=== PATIENT | male | born 1960 | race Caucasian/White ===

== ENCOUNTER 2018-03-29 12:14 | Outpatient (CLI) | payer OTHER | END 2018-03-29 12:15 | disposition home or self-care (01) | LOC: BICMRI 12:14 | PROVIDERS: ATTEND Family Medicine | DX: M54.41 Lumbago with sciatica, right side (principal); M99.83 Other biomechanical lesions of lumbar region; M47.896 Other spondylosis, lumbar region | CPT/HCPCS: 72148 ==

== ENCOUNTER 2018-04-11 12:49 | Outpatient (CLI) | payer OTHER | END 2018-04-11 12:50 | disposition home or self-care (01) | LOC: BICMRI 12:49 | PROVIDERS: ATTEND Family Medicine | DX: M25.511 Pain in right shoulder (principal); M19.011 Primary osteoarthritis, right shoulder ==

== ENCOUNTER 2019-05-12 05:50 | Day surgery (SDC) | payer OTHER ==
[2019-05-11 16:32] VITALS: BMI 22.8
[2019-05-12] MEDS ORDERED: Fentanyl 100 MCG/2 ML VIAL ONE (06:48)
[2019-05-12] MEDS ORDERED: HYDROmorphone 0.5 MG/0.5 ML SYRINGE ONE (06:49)
[2019-05-12] MEDS ORDERED: Thrombin 5000 UNITS/5 ML VIAL ONE (06:54)
[2019-05-12] MEDS ORDERED: Bupivacaine HCl 0.5%/Epinephrine 1:200,000/PF 30 ml Vial ONE (06:54)
[2019-05-12] MEDS ORDERED: Tamsulosin HCl 0.4 MG CAP ONE (08:27)
[2019-05-12] MEDS ORDERED: HYDROcodone/Acetaminophen 5/325 mg Tablet ONE ×2 (10:16→12:33)
--- NOTE | 2019-05-12 11:45 | OP ---
DATE OF PROCEDURE: 05/12/2019 HOSPITAL STAFF PHARMACIST: Benigno Milian PA-C INDICATION: Pain. DIAGNOSIS: Right L5 radiculopathy. PROCEDURES PERFORMED: Right L5 medial facetectomy and foraminotomy. ANESTHESIA: General. DESCRIPTION OF PROCEDURE: The patient was brought into the operating room and placed under general anesthesia. He was flipped from a supine to prone position on operating room table. A linear incision was planned over L5. After prepping and draping and after an appropriate preoperative pause, the incision was created. The soft tissues were swept away from midline. Self-retaining retractors were placed in the wound for optimal exposure. After confirming the appropriate level with C-arm fluoroscopy, high-speed cutting drill bit as well as 2, 3, and 4 mm Kerrisons were used to perform facetectomy along the medial aspect of L5 on the right. A portion the superior articulating facet was removed in order to decompress the projecting component into the foramen. After ensuring the foramina was patent in the nerve root free of compression, the wound was irrigated. Hemostasis was maintained throughout. The wound was then closed in anatomic layers and a pressure dressing was applied. There were no known procedural complications. Job ID: [id number]
--- NOTE | 2019-05-12 16:54 | EKG ---
Test Reason : PREOP Blood Pressure : / mmHG Vent. Rate : 083 BPM Atrial Rate : 083 BPM P-R Int : 156 ms QRS Dur : 090 ms QT Int : 380 ms P-R-T Axes : 061 060 056 degrees QTc Int : 446 ms Normal sinus rhythm repolarization variant No previous ECGs available Confirmed by DR. Theresa ELIZABETH ([id number]) on 05/12/2019 4:53:50 PM Referred By: Oneyda CALIX Confirmed By:DR. Theresa ELIZABETH
== END 2019-05-12 12:45 ==
LOC: SDC 05:50
PROVIDERS: ATTEND Neurological Surgery
PROC: 01NB0ZZ Release Lumbar Nerve, Open Approach (ICD-10-PCS; principal; 2019-05-12)
DX: M54.16 Radiculopathy, lumbar region (principal); M46.06 Spinal enthesopathy, lumbar region; M48.061 Spinal stenosis, lumbar region without neurogenic claudication; Z79.899 Other long term (current) drug therapy
CPT/HCPCS: 76000; 93005; 93010; J0670; J0690; J1170; J3010

== ENCOUNTER 2019-07-10 10:23 | Outpatient (CLI) | payer OTHER ==
--- NOTE | 2019-07-10 11:14 | MRI ---
MRI CERVICAL SPINE WITHOUT CONTRAST: HISTORY: Cervical radiculopathy. COMPARISON: None. FINDINGS: Appropriate T1 marrow signal intensity of the cervical vertebrae. Cervical spine vertebral body heigh t is maintained. No fracture. No significant STIR hyperintensity to suggest vertebral body edema or ligamentous injury. Visualized brain parenchyma, cervicomedullary junction, cervical cord and the upper thoracic cord are normal size and signal intensity. C2-C3: No significant central canal stenosis or significant neural foraminal narrowing. C3-C4: Central disc protrusion makes contact with the thecal sac. Mild central canal stenosis. Mild t o moderate right and left foraminal narrowing due to uncovertebral hypertrophy. C4-C5: Broad-based disc osteophyte complex with a central disc protrusion. Mild central canal stenosi s. Moderate to severe right and moderate left foraminal narrowing due to uncovertebral hypertrophy. C5-C6: Broad-based disc osteophyte complex with a left and right paracentral component. There is flat tening the cervical cord. Subarachnoid space is maintained. Mild central canal stenosis. Moderate to severe bilateral foraminal narrowing due to uncovertebral hypertrophy. C6-C7: Broad-based discussed by complex with a central/left paracentral component. Mass effect and de formity of the left hemicord. Moderate central canal stenosis. Moderate to severe bilateral neural foraminal narrowing due to uncovertebral hypertrophy. C7-T1: No significant central canal stenosis or significant neural foraminal narrowing. IMPRESSION: Multilevel degenerative changes of the cervical spine. Transcribed Date/Time: 07/10/2019 11:20 AM
== END 2019-07-10 10:24 | disposition home or self-care (01) ==
LOC: TBSIIMAG 10:23
PROVIDERS: ATTEND Neurological Surgery
DX: M47.22 Other spondylosis with radiculopathy, cervical region (principal)
CPT/HCPCS: 72141

== ENCOUNTER 2019-08-15 12:31 | Day surgery (SDC) | payer OTHER ==
[2019-08-14 10:04] VITALS: BMI 22.8
--- NOTE | 2019-08-14 22:16 | HP ---
HISTORY OF PRESENT ILLNESS: Mr. Hewitt is a pleasant -tykh-hyh man presenting today for evaluation of severe right-sided C6 and C7 patterns of pain. He is known to us for recent lumbar decompression back in April of this year. His MRI from [place] reveals severe foraminal stenosis scattered throughout the cervical spine, but most severe from C5-C7 that would fit his symptoms as well. He attempted conservative methods including medications and home exercises. PHYSICAL EXAMINATION: GENERAL: He is alert and oriented x3. EXTREMITIES: He has excellent strength in the bilateral upper extremities in all movements from shoulders to fingers. Positive right Spurling's maneuver and gait is normal. No ataxia. PAST MEDICAL HISTORY: Significant for chronic pain syndrome, asthma, allergies. PAST SURGICAL HISTORY: Lumbar decompression. CURRENT MEDICATIONS: 1. Propranolol. 2. Meloxicam. 3. Carvedilol. 4. Carisoprodol. 5. Dahlgren. ALLERGIES: SEASONAL ALLERGIES, BUT OTHERWISE NO KNOWN MEDICATION, DRUG, OR FOOD ALLERGIES. ASSESSMENT: Cervical radiculopathy. PLAN: Dr. Flores met with the patient, reviewed imaging, advocated for C5-C7 anterior cervical discectomy and fusion. He explained to the patient the risks, benefits, and alternatives of the procedure. The patient expressed understanding, elected to move forward with surgery as discussed. I do believe the patient is mentally competent and capable of making medical decisions for himself. We will move forward with surgery as planned. Job ID: [id number]
[~2019-08-15 12:31] MED LIST: Dexamethasone 20 MG/5 ML VIAL ONE; Glycopyrrolate 0.2 MG/ML 5 ML SYRINGE ONE; Lidocaine 1% PF 5 ML VIAL ONE; Ondansetron PF 4 MG/2 ML Vial ONE; PROPOFOL 200 MG/20 ML VIAL ONE; Rocuronium Bromide 10 MG/ML (10ML VIAL) ONE; ePHEDrine/0.9% NaCl/PF SYRINGE 50 mg/10 ml ONE
[2019-08-15] MEDS ORDERED: Thrombin 5000 UNITS/5 ML VIAL ONE (14:22)
[2019-08-15] MEDS ORDERED: Fentanyl 100 MCG/2 ML VIAL ONE ×5 (14:37→16:37)
[2019-08-15] MEDS ORDERED: Tamsulosin HCl 0.4 MG CAP ONE (16:16)
--- NOTE | 2019-08-15 23:21 | OP ---
DATE OF PROCEDURE: 08/15/2019 CLINICAL MARKETING MANAGER: Benigno Milian PA-C INDICATION: Pain. DIAGNOSIS: Cervical radiculopathy. PROCEDURE PERFORMED: Anterior cervical diskectomy and fusion, C5 through C7. ANESTHESIA: General. DESCRIPTION OF PROCEDURE: The patient was brought to the operating room, placed under general anesthesia. He was placed on table in supine position. A transverse incision was planned over the lateral aspect of the neck on the right. After prepping and draping and after an appropriate preoperative pause, the incision was created. The underlying platysma muscle was identified and incised. A blunt tissue plane anterior to the sternocleidomastoid muscle was used to gain access to the prevertebral space. Self-retaining retractors were placed in the wound for optimal exposure. After confirming the appropriate level with C-arm fluoroscopy, an annulotomy was performed in the C6-C7 disk space. All disk material as well as anterior posterior osteophytes were removed. After complete decompression, a 6-mm lordotic PEEK cage packed with allograft and autograft material was placed in the interbody space. We then redirected our attention level above C5-C6, where again an annulotomy was performed. All disk material as well as anterior posterior osteophytes were removed. After complete decompression, a 7-mm lordotic PEEK cage packed with allograft and autograft material was placed within the interbody space. An anterior cervical plate was then fashioned to the front of spine and secured with a total of 6 screws. Midline and lateral structures were inspected and found to be free from significant trauma. The wound was irrigated. Hemostasis was maintained throughout. The wound was then closed in anatomic layers and a pressure dressing was applied. There were no known procedural complications. Job ID: [id number]
== END 2019-08-15 18:00 | disposition home or self-care (01) ==
LOC: SDC 12:31
PROVIDERS: ATTEND Neurological Surgery
PROC: 0RT30ZZ Resection of Cervical Vertebral Disc, Open Approach (ICD-10-PCS; principal; 2019-08-15)
PROC: 0RG2070 Fusion of 2 or more Cervical Vertebral Joints with Autologous Tissue Substitute, Anterior Approach, Anterior Column, Open Approach (ICD-10-PCS; principal; 2019-08-15)
PROC: 0RG20A0 Fusion of 2 or more Cervical Vertebral Joints with Interbody Fusion Device, Anterior Approach, Anterior Column, Open Approach (ICD-10-PCS; principal; 2019-08-15)
DX: M54.12 Radiculopathy, cervical region (principal); M48.02 Spinal stenosis, cervical region; G89.4 Chronic pain syndrome; Z79.899 Other long term (current) drug therapy
CPT/HCPCS: 76000; J0131; J0690; J1100; J2001; J2405; J2704; J3010

== ENCOUNTER 2020-08-07 14:30 | Outpatient (CLI) | payer OTHER ==
--- NOTE | 2020-08-08 09:19 | MRI ---
LUMBAR SPINE MRI WITH AND WITHOUT CONTRAST: DATE: 08/07/2020. HISTORY: Low back pain with prior lumbar spine surgery. TECHNIQUE: Multiplanar, multisequence MR imaging of the lumbar spine is provided with and without contrast. FINDINGS: There is no focal area of suspicious osseous marrow edema on the sagittal STIR Imaging. There is pro minent degenerative end plate change at L1-2. On the basis of 5 lumbar-type vertebral bodies, the conus medullaris terminates at L1-2. T12-L1: Intervertebral disk height and signal intensity within normal limits with no significant neville tral canal or neural foraminal stenosis. L1-2: Disk space narrowing with degenerative end plate change, anterior osteophyte formation, and po sterior disk bulge. Mild bilateral facet hypertrophy. Mild bilateral neural foraminal stenosis with minimal central canal stenosis. L2-3: Mild bilateral facet hypertrophy. Disk space narrowing with mild disk bulge. Mild bilateral neural foraminal stenosis. No significant central canal stenosis. L3-4: Bilateral facet hypertrophy. Intervertebral disk height and signal intensity within normal li mits with no significant central canal or neural foraminal stenosis. L4-5: Mild bilateral facet hypertrophy. There is disk space narrowing with disk desiccation and mil d disk bulge. No central canal stenosis. Mild bilateral neural foraminal stenosis. L5-S1: Disk space narrowing with disk desiccation and disk bulge. No significant central canal sten osis. Bilateral facet hypertrophy, right greater than left. Severe right and moderate left neural f oraminal stenosis. The visualized retroperitoneal structures demonstrate no acute findings. He postcontrast imaging demonstrates no abnormal enhancement involving the contents of the thecal sac . There is mild asymmetric enhancement of the bilateral L5 nerve roots in the foraminal regions, right greater than left, likely on the basis of inflammatory change. IMPRESSION: Degenerative changes within the lumbar spine as detailed above, most significant on the right at the L5-S1 level. POS: ALEIDA
== END 2020-08-07 14:31 | disposition home or self-care (01) ==
LOC: TBSIIMAG 14:30
PROVIDERS: ATTEND Neurological Surgery
DX: M54.5 Low back pain (principal); M47.816 Spondylosis without myelopathy or radiculopathy, lumbar region; M47.817 Spondylosis without myelopathy or radiculopathy, lumbosacral region
CPT/HCPCS: 72158

== ENCOUNTER 2021-08-14 14:25 | Outpatient (CLI) | payer OTHER | END 2021-08-14 14:26 | disposition home or self-care (01) | LOC: BICCT 14:25 | PROVIDERS: ATTEND Neurological Surgery | DX: M54.50 Low back pain, unspecified (principal); M54.2 Cervicalgia; M51.36 Other intervertebral disc degeneration, lumbar region; M47.812 Spondylosis without myelopathy or radiculopathy, cervical region; Z98.1 Arthrodesis status | CPT/HCPCS: 72050; 72110; 72131 ==

== ENCOUNTER 2022-09-12 14:38 | Emergency (ER) | payer OTHER ==
[~2022-09-12 14:38] MED LIST changes: -Dexamethasone 20 MG/5 ML VIAL ONE; -Glycopyrrolate 0.2 MG/ML 5 ML SYRINGE ONE; +Iopamidol-370 76% 500 ML 1 ML ONE; -Lidocaine 1% PF 5 ML VIAL ONE; -Ondansetron PF 4 MG/2 ML Vial ONE; -PROPOFOL 200 MG/20 ML VIAL ONE; -Rocuronium Bromide 10 MG/ML (10ML VIAL) ONE; -ePHEDrine/0.9% NaCl/PF SYRINGE 50 mg/10 ml ONE
[2022-09-12] MEDS ORDERED: LORazepam 2 MG/ML SYR.(CARPUJECT) ONE (15:04)
[2022-09-12 15:23] LABS: Hemoglobin 13.1 g/dL (14.0-18.0); Mean Corpuscular HGB CONC 34.1 g/dL (32.0-36.0); Mean Corpuscular Hemoglobin 34.5 pg (27.0-31.0); RBC Distribution Width 11.9 % (11.5-14.5); White Blood Cell (WBC) Count 7.4 10x3/uL (4.8-10.8)
[2022-09-12 15:24] LABS: #Monocytes 0.4 thou/uL (0.11-0.59); %Basophils 0.1 % (0.0-1.0); %Eosinophils 0.6 % (0.0-10.0); %Lymphocytes 13.1 % (21.0-51.0); %Monocytes 5.1 % (0.0-10.0); %Neutrophils 81.2 % (42.0-75.0)
[2022-09-12 15:42] LABS: Acetaminophen Less than 10.0 mcg/mL (10.0-30.0); Alcohol 150 mg/dL (Less than 10); CK (CPK) 679 U/L (30-200); Salicylate Less than 8.0 mg/dL (15.0-30.0)
[2022-09-12 15:43] LABS: ALT (SGPT) 19 U/L (8-55); AST (SGOT) 51 U/L (5-34); Alkaline Phosphatase 57 U/L (40-110); Anion Gap 17 mmol/L (10-20); BUN (Urea Nitrogen) 6 mg/dL (8.4-25.7); Bilirubin, Total 1.1 mg/dL (0.2-1.2); Calc. Creatinine Clearance 0 mL/min (70-130); Calcium 8.2 mg/dL (7.8-10.44); Carbon Dioxide 24 mmol/L (23-31); Chloride 102 mmol/L (98-107); Estimated GFR 104; Globulin 3.4 g/dL (2.4-3.5); Glucose 85 mg/dL (80-115); Potassium 3.1 mmol/L (3.5-5.1); Protein, Total 7.4 g/dL (5.8-8.1); Sodium 140 mmol/L (136-145)
[2022-09-12 15:48] LABS: Mean Platelet Volume 8.2 fL (7.4-10.4); Platelet Count 84 10x3/uL (130-400); Platelet Morphology Comment Appears Decreased; RBC Morphology Normal
[2022-09-12] MEDS ORDERED: Piperacillin/Tazobactam 4.5 GM VIAL ONE (15:51)
[2022-09-12] MEDS ORDERED: Acetaminophen 325 MG TAB ONE (15:51)
== END 2022-09-12 17:11 | disposition home or self-care (01) ==
LOC: ERS 14:38
DX: F10.239 Alcohol dependence with withdrawal, unspecified (principal); I10 Essential (primary) hypertension; F17.210 Nicotine dependence, cigarettes, uncomplicated
CPT/HCPCS: 36415; 71045; 74177; 80053; 80307; 82550; 83605; 84484; 85025; 87040; 93005; 96374; 96375; J2060; J2543; Q9967